=== PATIENT | male | born 1935 | race Caucasian/White ===

== ENCOUNTER → 2017-09-20 | Outpatient (REF) | payer MEDICARE, MEDICAID ==
[2017-09-20 14:27] LABS: APPEARANCE, URINE CLEAR (CLEAR); BACTERIA, URINE AUTO NEGATIVE (NEGATIVE); BILIRUBIN, URINE AUTO NEGATIVE (NEGATIVE); BLOOD, URINE BLOOD NEGATIVE (NEGATIVE); COLOR, URINE YELLOW (YELLOW); GLUCOSE, URINE (UA) AUTO NEGATIVE (NEGATIVE); KETONE, URINE AUTO NEGATIVE (NEGATIVE); LEUKOCYTE ESTERASE, URINE AUTO NEGATIVE (NEGATIVE); MUCUS, URINE SMALL (NEGATIVE); NITRITE, URINE AUTO NEGATIVE (NEGATIVE); PROTEIN, URINE AUTO NEGATIVE (NEGATIVE); RBC, URINE AUTO 1 /HPF (0-3); SPECIFIC GRAVITY URINE AUTO 1.014 (1.002-1.035); SQUAMOUS EPITHELIAL CELL UR AU 0 /HPF (0-6); UROBILINOGEN, URINE AUTO 0.2 mg/dL (0.0-2.0); WBC, URINE AUTO 0 /HPF (0-3)
== END ==
LOC: M SMT 13:55
DX: R97.20 Elevated prostate specific antigen [PSA] (principal); N40.1 Benign prostatic hyperplasia with lower urinary tract symptoms
CPT/HCPCS: 81001

== ENCOUNTER 2018-12-12 11:48 | Emergency (ER) | payer MEDICARE, MEDICAID ==
[~2018-12-12] VITALS: Ht 172.7 cm; Wt 68.2 kg
[2018-12-12] MEDS ORDERED: OMEP-221 (12:32)
[2018-12-12] MEDS ORDERED: AMLO2.5T3 (12:32)
[2018-12-12] MEDS ORDERED: NITR0.4S14 (12:32)
[2018-12-12 14:06] LABS: BASO % 0.3 % (0.0-1.0); EOS % 0.3 % (0.0-3.0); HEMOGLOBIN 14.2 g/dl (13.5-17.5); LYMPH # 1.1 10^3/uL (1.5-4.5); LYMPH % 14.6 % (24.0-44.0); MEAN CORPUSCULAR HEMOGLOBIN 30.9 pg (27.0-33.0); MEAN CORPUSCULAR HGB CONC 33.8 g/dl (32.0-36.5); MEAN CORPUSCULAR VOLUME 91.5 fl (80.0-96.0); MONO # 0.8 10^3/uL (0.0-0.8); MONO % 10.6 % (0.0-5.0); NEUTROPHILS # 5.7 10^3/uL (1.8-7.7); NEUTROPHILS % 73.9 % (36.0-66.0); PLATELET COUNT, AUTOMATED 302 10^3/uL (150-450); RED BLOOD COUNT 4.59 10^6/uL (4.30-6.10); WHITE BLOOD COUNT 7.7 10^3/uL (4.0-10.0)
[2018-12-12] MEDS ORDERED: ISOVUE-370 76% 100ML VIAL (Q9967) As Ordered ONE (14:15)
[2018-12-12 14:38] LABS: ALBUMIN 4.3 GM/DL (3.2-5.2); BILIRUBIN,DIRECT 0.1 MG/DL (0.0-0.2); BILIRUBIN,TOTAL 0.5 MG/DL (0.2-1.0); TOTAL PROTEIN 7.1 GM/DL (6.4-8.2)
[2018-12-12] MEDS ORDERED: PREPOIN PR (15:28)
[2018-12-12] MEDS ORDERED: MIRA3350 PO (15:28)
[2018-12-12 15:43] VITALS: BP 143/69
--- NOTE | 2018-12-12 17:22 | REP ---
REASON: Left lower quadrant pain. COMPARISON: None. CONTRAST: 100 mL Isovue-370. Dependant subsegmental atelectatic changes and mild fibrotic changes are seen in the lung bases. There is evidence of four chamber cardiac enlargement. The liver, gallbladder, spleen, pancreas, adrenal glands, and kidneys are within normal limits. The abdominal aorta and paraaortic regions are within normal limits. The bowel loops and their mesenteries are within normal limits. There is no free fluid or free air. There is no intraabdominal mass or adenopathy. CT PELVIS: There is prostatomegaly. There is no pelvic sidewall adenopathy. There has been previous left herniorrhaphy. Near the postoperative bed there is a 2.3 x 1.2 cm sized soft tissue density. The pelvic bowel loops and their mesenteries are within normal limits. There is a small urinary bladder diverticulum anterior and on the left. There is no free pelvic fluid or air. Bone window technique throughout the exam shows the osseous structures to be within normal limits for the patient's age of 83 years. IMPRESSION: 1. There is a small nodule or soft-tissue density seen in the left groin region, probably representing a post-surgical scar. 2. Prostatomegaly. 3. No evidence of acute intraabdominal or intrapelvic disease. 4. Chronic lung base changes. Electronically Signed by Jonathan Wilde DO 12/13/2018 11:56 A
== END 2018-12-12 15:48 | disposition home or self-care (01) ==
LOC: M ED 11:48
DX: K64.4 Residual hemorrhoidal skin tags (principal); N40.0 Benign prostatic hyperplasia without lower urinary tract symptoms; Z87.891 Personal history of nicotine dependence; R93.5 Abnormal findings on diagnostic imaging of other abdominal regions, including retroperitoneum; R91.8 Other nonspecific abnormal finding of lung field; I51.7 Cardiomegaly; Z79.899 Other long term (current) drug therapy; Z88.0 Allergy status to penicillin
CPT/HCPCS: 74177; 80047; 80076; 81001; 85025; 99284; Q9967

== ENCOUNTER → 2019-02-09 | Outpatient (REF) | payer MEDICARE, MEDICAID ==
[~2019-02-09] MED LIST: AMLO2.5T3; MIRA3350 PO; NITR0.4S14; OMEP-221; PREPOIN PR
[2019-02-09 15:27] LABS: PLATELET COUNT, AUTOMATED 274 10^3/uL (150-450)
[2019-02-09 15:39] LABS: INR 1.09; PROTHROMBIN TIME 13.9 SECONDS (11.8-14.0)
[2019-02-09 15:40] LABS: PARTIAL THROMBOPLASTIN TIME 33.2 SECONDS (25.0-38.4)
== END ==
LOC: M LABDRAW1 11:50
PROVIDERS: ATTEND Physician Assistant
DX: Z01.812 Encounter for preprocedural laboratory examination (principal); M47.27 Other spondylosis with radiculopathy, lumbosacral region

== ENCOUNTER 2019-05-19 07:45 | Day surgery (SDC) | payer MEDICARE, MEDICAID ==
[~2019-05-19] VITALS: Ht 172.7 cm; Wt 67.0 kg
[~2019-05-19 07:45] MED LIST changes: +CARV6.25 PO; +LEVO500T3 PO; -NITR0.4S14; +NITR0.4S14 SL; +NS 1,000 ML IV ONE; -OMEP-221; +OMEP-221 PO; +OXYB5TAB10 PO; +PRED10PA PO
[2019-05-19 09:29] VITALS: BP 164/89
[2019-05-19] MEDS ORDERED: CARVedilol 6.25 MG TAB PO STA (09:29)
[2019-05-19] MEDS ORDERED: CARVedilol 6.25 MG TAB As Ordered ONE (09:29)
[2019-05-19] MEDS ORDERED: LIDOCAINE 2% INJ 100 MG/5 ML SDV (FOR ANES.) As Ordered ONE (09:39)
[2019-05-19] MEDS ORDERED: propofoL 200 MG/20 ML VIAL As Ordered ONE ×2 (09:39→09:54)
[2019-05-19] MEDS ORDERED: ESMOLOL INJ 100MG/10ML VIAL As Ordered ONE (09:39)
--- NOTE | 2019-05-19 10:05 | ROOR ---
Patient Name: Rafal Mccoy Procedure Date: 05/19/2019 9:36 AM Date of : 1935 Age: 84 Room: [facility] Gender: Male Note Status: Finalized Procedure: Colonoscopy Indications: Hematochezia Providers: Shukri VERAS MD Referring MD: SHANKAR BARKLEY MD Requesting Provider: Medicines: Monitored Anesthesia Care Complications: No immediate complications. Procedure: Pre-Anesthesia Assessment: - The heart rate, respiratory rate, oxygen saturations, blood pressure, adequacy of pulmonary ventilation, and response to care were monitored throughout the procedure. The Colonoscope was introduced through the anus and advanced to the cecum, identified by appendiceal orifice and ileocecal valve. The colonoscopy was performed without difficulty. The patient tolerated the procedure well. The quality of the bowel preparation was good. Findings: The perianal and digital rectal examinations were normal. Two sessile polyps were found in the ascending colon. The polyps were 4 to 5 mm in size. These polyps were removed with a cold snare. Resection and retrieval were complete. To prevent bleeding after the polypectomy, two hemostatic clips were successfully placed. Internal hemorrhoids were found during retroflexion. The hemorrhoids were medium-sized. The exam was otherwise without abnormality on direct and retroflexion views. Impression: - Two 4 to 5 mm polyps in the ascending colon, removed with a cold snare. Resected and retrieved. Clips were placed. - Moderate to large Internal hemorrhoids. - Mild to moderate sigmoid diverticulosis. - The examination was otherwise normal on direct and retroflexion views. Recommendation: - Telephone endoscopist for pathology results in 2 weeks. - Use fiber, for example Citrucel, Fibercon, Konsyl or Metamucil. - Miralax 1 capful (17 grams) in 8 ounces of water PO daily. Shukri Veras MD Shukri VERAS MD 05/19/2019 10:04:38 AM Electronically signed by Shukri VERAS MD Number of Addenda: 0 Note Initiated On: 05/19/2019 9:36 AM Estimated Blood Loss: Estimated blood loss: none.
[2019-05-19 10:30] VITALS: BP 138/77
== END 2019-05-19 10:37 | disposition home or self-care (01) ==
LOC: M OPP 07:45
PROVIDERS: ATTEND Internal Medicine Gastroenterology
DX: D12.2 Benign neoplasm of ascending colon (principal); K62.5 Hemorrhage of anus and rectum; K92.1 Melena; K64.8 Other hemorrhoids; I10 Essential (primary) hypertension; K21.9 Gastro-esophageal reflux disease without esophagitis; J44.9 Chronic obstructive pulmonary disease, unspecified; N40.0 Benign prostatic hyperplasia without lower urinary tract symptoms; Z79.899 Other long term (current) drug therapy

== ENCOUNTER → 2019-10-31 | Outpatient (REF) ==
[~2019-10-31] MED LIST changes: +DOXY-342 PO; -NS 1,000 ML IV ONE; +PANT40TA3 PO; +PHEN28OI PR; -PREPOIN PR
[2019-10-31 11:57] LABS: VENOUS BASE EXCESS -1.1 (-2.0-2.0); VENOUS HCO3 24.4 MEQ/L (23.0-27.0); VENOUS O2 SATURATION 73.2 % (60.0-80.0); VENOUS PARTIAL PRESSURE CO2 43.7 mmHg (38.0-50.0); VENOUS PARTIAL PRESSURE O2 41.8 mmHg (30.0-50.0); VENOUS PH 7.365 UNITS (7.330-7.430); VENOUS STANDARD HCO3 23.1 MEQ/L; VENOUS TOTAL CO2 25.8 MEQ/L (24.0-28.0)
== END ==
LOC: M LAB REF 11:43
DX: Z00.00 Encounter for general adult medical examination without abnormal findings (principal)

== ENCOUNTER 2019-11-12 14:37 | Emergency (ER) | payer MEDICARE, MEDICAID ==
[~2019-11-12] VITALS: Ht 172.7 cm; Wt 68.1 kg
[~2019-11-12 14:37] MED LIST changes: -DOXY-342 PO; -PANT40TA3 PO
[2019-11-12] MEDS ORDERED: DOXY-342 PO (14:52)
[2019-11-12] MEDS ORDERED: PANT40TA29 PO (14:52)
[2019-11-12 15:24] LABS: BASO % 0.4 % (0.0-1.0); EOS # 0.1 10^3/uL (0.0-0.5); EOS % 1.5 % (0.0-3.0); HEMATOCRIT 36.4 % (42.0-52.0); HEMOGLOBIN 12.6 g/dl (13.5-17.5); LYMPH # 1.4 10^3/uL (1.5-5.0); LYMPH % 19.4 % (24.0-44.0); MEAN CORPUSCULAR HEMOGLOBIN 32.4 pg (27.0-33.0); MEAN CORPUSCULAR HGB CONC 34.6 g/dl (32.0-36.5); MEAN CORPUSCULAR VOLUME 93.6 fl (80.0-96.0); MONO # 0.8 10^3/uL (0.0-0.8); MONO % 10.6 % (0.0-5.0); NEUTROPHILS # 4.8 10^3/uL (1.5-8.5); NEUTROPHILS % 67.7 % (36.0-66.0); PLATELET COUNT, AUTOMATED 260 10^3/uL (150-450); RED BLOOD COUNT 3.89 10^6/uL (4.30-6.10); WHITE BLOOD COUNT 7.2 10^3/uL (4.0-10.0)
[2019-11-12] MEDS ORDERED: ISOVUE-370 76% 100ML VIAL As Ordered ONE (15:34)
[2019-11-12 15:35] LABS: INR 1.04; PROTHROMBIN TIME 13.3 SECONDS (11.8-14.0)
[2019-11-12] MEDS ORDERED: IPRATROPIUM 0.5MG/ALBUTEROL 2.5MG INH SOL UD 3ML (DUONEB) NEB ONE (15:45)
[2019-11-12] MEDS ORDERED: ALBUTEROL SULFATE 2.5 MG/0.5 ML INH NEB SOLN INH ONE (15:45)
[2019-11-12] MEDS ORDERED: methylPREDNISolone 40MG 1ML VIAL IV ONE (15:45)
[2019-11-12 15:49] LABS: ALBUMIN 3.5 GM/DL (3.2-5.2); ALT/SGPT 20 U/L (12-78); BILIRUBIN,DIRECT < 0.1 MG/DL (0.0-0.2); BILIRUBIN,TOTAL 0.4 MG/DL (0.2-1.0); CK-MB VALUE MASS 1.2 NG/ML (<3.6); CPK CREATINE PHOSPHOKINASE 37 U/L (39-308); LIPASE 151 U/L (73-393); MB/CK RELATIVE INDEX 3.24 (< OR =4); TOTAL PROTEIN 6.2 GM/DL (6.4-8.2); TROPONIN I < 0.02 NG/ML (< 0.10)
[2019-11-12 16:45] VITALS: BP 149/75
--- NOTE | 2019-11-12 19:20 | ECGEPIP ---
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
--- NOTE | 2019-11-13 01:31 | REP ---
AP PORTABLE CHEST: 11/12/2019. CLINICAL HISTORY: Chest pain. COMPARISON: 11/07/2008. FINDINGS: Lungs less well inflated than on the previous study. Patient's mandible projects over the extreme apices, obscuring them. That said, no gross pneumothorax. There is no pleural effusion or visible infiltrate. Heart size mildly prominent, but this may be exaggerated by portable technique and hypoinflation. The aorta is tortuous, calcified, and unchanged allowing for technique. Airway intact. Pulmonary arteries are prominent, suggesting pulmonary artery hypertension. No pulmonary edema. No dense consolidation. Degenerative changes in the spine and shoulders. IMPRESSION: 1. Somewhat hypoinflated chest, but suspected mild cardiomegaly without edema, effusion, or infiltrate. Limited examination. Posterior lower lung zones are obscured by the diaphragm. Electronically Signed by French Harkins MD 11/13/2019 08:45 A
--- NOTE | 2019-11-13 02:52 | REP ---
CT BRAIN WITHOUT CONTRAST: 11/12/2019. CLINICAL HISTORY: Difficulty ambulating. TECHNIQUE: Axial soft tissue and bone windows with coronal reconstructions. FINDINGS: No prior study. Lateral ventricles are without dilatation or displacement. Anterior horns are slightly asymmetric due to positioning but are in the broad range of normal. Basal ganglia show some calcifications as a benign finding and are normal for age without acute finding. There is diffuse cerebral atrophy, greatest in the temporal and frontal lobes. Heterogeneous low attenuation white matter changes bilaterally suggest chronic small vessel ischemic disease of aging. Cortical stripe shows diffuse atrophy, but there is no vascular territory infarct, intra- or extra-axial hemorrhage, mass, or mass effect. Brainstem unremarkable. Cerebellum shows some mild atrophy. Basal cisterns are intact. Mastoid aeration, visible sinuses, skull base, and calvarium were grossly intact. Minor atherosclerotic calcifications in the carotid siphons. IMPRESSION: 1. Some chronic small vessel white matter ischemic changes of aging and mild to moderate cerebral and mild cerebellar atrophy, all age appropriate. 2. Symmetric basal ganglia calcifications, a common benign finding in this age group. 3. No acute infarct, intra- or extra-axial hemorrhage, mass, mass effect, or edema. 4. Skull base, calvarium, visible sinuses, and mastoids clear. Electronically Signed by French Harkins MD 11/13/2019 08:47 A
--- NOTE | 2019-11-13 03:20 | REP ---
CT ANGIOGRAM CHEST: 11/12/2019. CLINICAL HISTORY: Chest pain. TECHNIQUE: Bolus of 75 mL Isovue-370. Scanning through the chest with our pulmonary angiogram technique and with both coronal and sagittal reconstructions in MIP and standard reformats. COMPARISON: AP portable chest today. FINDINGS: There is some minimal subsegmental atelectatic change and dependent atelectasis in the posterior lower lung zones. I see no dense consolidation. There are a few areas of ground-glass opacity in those lower lung zones, as well. The middle and upper lobes were unremarkable. There is no effusion or dense consolidation with air bronchograms. Heart is mildly enlarged with left atrial and ventricular enlargement. No pericardial thickening or effusion. Small hiatal hernia noted. The aorta is without aneurysm or dissection. The main, right, and left pulmonary arteries and the mediastinum are without filling defect or vessel cutoff. Lobar, segmental, and subsegmental pulmonary arteries are all without filling defects or vessel cutoff to suggest pulmonary embolism. I see no pathologic sized mediastinal or hilar adenopathy. There is no axillary or supraclavicular mass. The bone windows show the sternum, manubrium, medial clavicles, visualized portions of the scapulae and humeral heads without fracture or destructive lesion. There are degenerative changes at the shoulders. Visualized ribs are without fracture or focal lesion. Upper abdomen shows no hepatosplenomegaly, although the liver is not fully imaged. The gallbladder and pancreas are also seen in part, and those portions visible were unremarkable. Adrenal glands are normal. Upper poles of kidneys intact. IMPRESSION: 1. There is no CT evidence of pulmonary thromboembolism, aortic aneurysm or dissection, and no mediastinal or hilar adenopathy. 2. Cardiomegaly without pulmonary edema. There is some minor dependent atelectatic change and linear atelectasis deep sulci lower lobes without effusion or dense consolidation. A few ground-glass opacities also seen in the deep sulci and posterior lower lung zones. 3. Degenerative changes in the spine without acute bony finding. 4. Upper abdomen structures unremarkable. There is a small hiatal hernia. Electronically Signed by French Harkins MD 11/13/2019 08:48 A
== END 2019-11-12 17:18 | disposition home or self-care (01) ==
LOC: M ED 14:37
DX: J98.11 Atelectasis (principal); R07.9 Chest pain, unspecified; I67.82 Cerebral ischemia; R06.02 Shortness of breath; R42 Dizziness and giddiness; I11.9 Hypertensive heart disease without heart failure; I25.2 Old myocardial infarction; I25.10 Atherosclerotic heart disease of native coronary artery without angina pectoris; K21.9 Gastro-esophageal reflux disease without esophagitis; J44.9 Chronic obstructive pulmonary disease, unspecified; B40.0 Acute pulmonary blastomycosis; M54.9 Dorsalgia, unspecified; Z87.19 Personal history of other diseases of the digestive system; Z95.5 Presence of coronary angioplasty implant and graft; Z87.891 Personal history of nicotine dependence; Z88.0 Allergy status to penicillin; Z79.899 Other long term (current) drug therapy; Z79.2 Long term (current) use of antibiotics
CPT/HCPCS: 70450; 71045; 71275; 80047; 80076; 81001; 82550; 82553; 83690; 84484; 85025; 85610; 93005; 93041; 94640; 94760; 96374; 99285; J2920; Q9967

== ENCOUNTER 2022-12-18 03:04 | Observation (INO) | payer MEDICARE, MEDICAID ==
[~2022-12-18] VITALS: Ht 172.7 cm; Wt 65.9 kg
[~2022-12-18 03:04] MED LIST changes: +DOXY100C82 PO; +LEVO1TAB39 PO; -LEVO500T3 PO; -OMEP-221 PO; +OMEP40CA5 PO; +PANT40TA29 PO
[2022-12-18 03:47] LABS: BASO % 0.7 % (0.0-1.0); EOS # 0.2 10^3/uL (0.0-0.5); EOS % 3.2 % (0.0-3.0); HEMATOCRIT 34.6 % (42.0-52.0); HEMOGLOBIN 11.8 g/dl (13.5-17.5); LYMPH # 1.2 10^3/uL (1.5-5.0); LYMPH % 20.6 % (24.0-44.0); MEAN CORPUSCULAR HGB CONC 34.1 g/dl (32.0-36.5); MEAN CORPUSCULAR VOLUME 96.6 fl (80.0-96.0); MONO # 0.7 10^3/uL (0.0-0.8); MONO % 11.1 % (2.0-8.0); NEUTROPHILS # 3.8 10^3/uL (1.5-8.5); NEUTROPHILS % 63.7 % (36.0-66.0); PLATELET COUNT, AUTOMATED 239 10^3/uL (150-450); RED BLOOD COUNT 3.58 10^6/uL (4.30-6.10); WHITE BLOOD COUNT 5.9 10^3/uL (4.0-10.0)
[2022-12-18 04:13] LABS: BLOOD UREA NITROGEN 12 MG/DL (9-23); CALCIUM LEVEL 8.6 MG/DL (8.3-10.6); CARBON DIOXIDE LEVEL 28 MMOL/L (20-31); CHLORIDE LEVEL 104 MMOL/L (98-107); CK-MB VALUE MASS < 1.0 NG/ML (<3.6); CPK CREATINE PHOSPHOKINASE 33 U/L (46-171); CREATININE FOR GFR 0.87 MG/DL (0.70-1.30); GLOMERULAR FILTRATION RATE > 60.0 (>35); GLUCOSE, FASTING 104 MG/DL (74-106); MB/CK RELATIVE INDEX 3.03 (< OR =4); POTASSIUM SERUM 3.9 MMOL/L (3.5-5.1); SODIUM LEVEL 140 MMOL/L (136-145)
[2022-12-18 05:01] LABS: CK-MB VALUE MASS 1.3 NG/ML (<3.6)
[2022-12-18 05:03] LABS: MB/CK RELATIVE INDEX 4.48 (< OR =4)
[2022-12-18] MEDS ORDERED: ISOVUE-370 76% 100ML VIAL As Ordered ONE (07:31)
[2022-12-18 08:56] VITALS: O2SAT 97
[2022-12-18] MEDS ORDERED: MED REC IN PROGRESS XX SCH (09:40)
[2022-12-18] MEDS ORDERED: NITR0.4S14 SL (10:56)
[2022-12-18] MEDS ORDERED: RANO500T2 PO (11:13)
[2022-12-18] MEDS ORDERED: NITR0.2D5 TOP (11:21)
[2022-12-18] MEDS ORDERED: ASPIRIN 325 MG TAB PO ONE (11:30)
[2022-12-18] MEDS ORDERED: HOME MED LIST COMPLETE! XX SCH (11:50)
[2022-12-18 12:25] LABS: RSV AMPLIFICATION NEGATIVE (NEGATIVE)
[2022-12-18] MEDS ORDERED: NITROGLYCERIN 0.3MG SUBL TAB SL PRN (12:35)
[2022-12-18] MEDS ORDERED: MAALOX 30 ML SUSP *UDC PO ONE (13:00)
[2022-12-18 14:08] LABS: CHOLESTEROL RISK RATIO 3.92 (<5); HDL CHOLESTEROL 56.8 MG/DL (>40); NON-HDL-C 166.2 MG/DL
[2022-12-18 14:21] LABS: HEMOGLOBIN A1c 5.3 % (4.0-6.0)
[2022-12-18] MEDS ORDERED: VALSARTAN 40MG TABLET (DIOVAN) PO ONE (14:40)
[2022-12-18 16:08] VITALS: BP 133/65
[2022-12-18 17:00] VITALS: BP 150/71; TEMP 96.5; O2SAT 92
[2022-12-18] MEDS: FONDAPARINUX SODIUM 2.5 MG/0.5 ML SYRINGE SC SCH (18:19)
[2022-12-18 20:30] VITALS: BP 140/67; TEMP 98; O2SAT 90
[2022-12-18] MEDS ORDERED: ROSUVASTATIN 10 MG TAB (CRESTOR) PO SCH (21:00)
[2022-12-19] VITALS: BP 160/70; TEMP 97.3; O2SAT 95
[2022-12-19 04:10] VITALS: BP 160/70; TEMP 97.9; O2SAT 93
[2022-12-19 07:33] VITALS: BP 124/59; TEMP 97.6; O2SAT 96
[2022-12-19] MEDS ORDERED: SUCRALFATE 1 GM TAB PO SCH (08:00)
[2022-12-19] MEDS ORDERED: ASPI81CH8 PO (08:39)
[2022-12-19] MEDS ORDERED: OMEP-173 PO (08:39)
[2022-12-19] MEDS ORDERED: DIOV40TA PO (08:39)
[2022-12-19] MEDS ORDERED: SUCR1TA PO (08:39)
[2022-12-19] MEDS ORDERED: SELF1KIT MC (08:39)
[2022-12-19] MEDS ORDERED: CRES10TA PO (08:39)
[2022-12-19 08:41] LABS: BASO # 0.1 10^3/uL (0.0-0.2); BASO % 0.8 % (0.0-1.0); EOS # 0.2 10^3/uL (0.0-0.5); EOS % 2.8 % (0.0-3.0); HEMATOCRIT 41.4 % (42.0-52.0); LYMPH # 2.1 10^3/uL (1.5-5.0); LYMPH % 28.5 % (24.0-44.0); MEAN CORPUSCULAR HEMOGLOBIN 32.9 pg (27.0-33.0); MEAN CORPUSCULAR HGB CONC 34.1 g/dl (32.0-36.5); MEAN CORPUSCULAR VOLUME 96.7 fl (80.0-96.0); MONO # 0.7 10^3/uL (0.0-0.8); MONO % 9.7 % (2.0-8.0); NEUTROPHILS # 4.3 10^3/uL (1.5-8.5); NEUTROPHILS % 57.8 % (36.0-66.0); PLATELET COUNT, AUTOMATED 282 10^3/uL (150-450); RED BLOOD COUNT 4.28 10^6/uL (4.30-6.10); WHITE BLOOD COUNT 7.4 10^3/uL (4.0-10.0)
[2022-12-19 08:54] LABS: HEMOGLOBIN 14.1 g/dl (13.5-17.5)
[2022-12-19] MEDS ORDERED: OMEPRAZOLE 20MG CAP PO SCH (09:00)
[2022-12-19] MEDS ORDERED: VALSARTAN 40MG TABLET (DIOVAN) PO SCH (09:00)
[2022-12-19] MEDS ORDERED: ASPIRIN 81MG CHEW TABLET PO SCH (09:00)
[2022-12-19 09:06] LABS: CK-MB VALUE MASS 1.9 NG/ML (<3.6)
[2022-12-19 09:08] LABS: ALBUMIN 3.9 G/DL (3.2-5.2); ALKALINE PHOSPHATASE 54 U/L (46-116); ALT/SGPT 12 U/L (7.0-40); AST/SGOT 16 U/L (<34); BILIRUBIN,TOTAL 0.7 MG/DL (0.3-1.2); BLOOD UREA NITROGEN 14 MG/DL (9-23); CALCIUM LEVEL 9.2 MG/DL (8.3-10.6); CARBON DIOXIDE LEVEL 26 MMOL/L (20-31); CHLORIDE LEVEL 107 MMOL/L (98-107); CREATININE FOR GFR 0.72 MG/DL (0.70-1.30); GLOMERULAR FILTRATION RATE > 60.0 (>35); GLUCOSE, FASTING 95 MG/DL (74-106); POTASSIUM SERUM 4.5 MMOL/L (3.5-5.1); SODIUM LEVEL 141 MMOL/L (136-145); TOTAL PROTEIN 6.6 G/DL (5.7-8.2)
[2022-12-19 09:09] LABS: CPK CREATINE PHOSPHOKINASE 43 U/L (46-171); MB/CK RELATIVE INDEX 4.41 (< OR =4)
[2022-12-19 09:30] VITALS: BP 132/64
[2022-12-19] MEDS: FONDAPARINUX SODIUM 2.5 MG/0.5 ML SYRINGE SC SCH (09:33)
== END 2022-12-19 11:06 | disposition home health service (06) ==
LOC: M ED 03:04 → M ED INP 03:05 → ENRESERV 15:20 → M PCU 16:48
PROVIDERS: ADMIT Internal Medicine; ATTEND Internal Medicine
DX: R07.89 Other chest pain (principal); R00.1 Bradycardia, unspecified; I25.10 Atherosclerotic heart disease of native coronary artery without angina pectoris; I25.2 Old myocardial infarction; Z95.5 Presence of coronary angioplasty implant and graft; Z88.0 Allergy status to penicillin; Z79.899 Other long term (current) drug therapy
CPT/HCPCS: 36415; 71045; 71046; 71275; 80048; 80053; 80061; 82550; 82553; 83036; 83880; 84484; 85025; 87631; 93005; 93041; 93306; 94760; 96372; 99285; G0378; J1652; Q9967

== ENCOUNTER 2023-04-06 13:58 | Emergency (ER) | payer MEDICARE, MEDICAID ==
[~2023-04-06] VITALS: Ht 172.7 cm; Wt 70.9 kg
[~2023-04-06 13:58] MED LIST changes: +ASPI81CH8 PO; +CRES10TA PO; +DIOV40TA PO; +NITR0.2D5 TOP; +OMEP-173 PO; -OXYB5TAB10 PO; +OXYB5TAB11 PO; +RANO500T2 PO; +SELF1KIT MC; +SUCR1TA PO
[2023-04-06] MEDS ORDERED: CARV6.25 PO (14:14)
[2023-04-06] MEDS ORDERED: RANO500T2 PO (14:15)
[2023-04-06] MEDS ORDERED: OXYB5TAB11 PO (14:15)
[2023-04-06 15:57] LABS: BASO % 0.4 % (0.0-1.0); EOS % 0.1 % (0.0-3.0); LYMPH # 0.6 10^3/uL (1.5-5.0); LYMPH % 6.7 % (24.0-44.0); MEAN CORPUSCULAR HEMOGLOBIN 32.4 pg (27.0-33.0); MEAN CORPUSCULAR HGB CONC 34.2 g/dl (32.0-36.5); MEAN CORPUSCULAR VOLUME 94.8 fl (80.0-96.0); MONO # 0.8 10^3/uL (0.0-0.8); MONO % 9.3 % (2.0-8.0); NEUTROPHILS # 6.9 10^3/uL (1.5-8.5); PLATELET COUNT, AUTOMATED 298 10^3/uL (150-450); RED BLOOD COUNT 4.01 10^6/uL (4.30-6.10); WHITE BLOOD COUNT 8.3 10^3/uL (4.0-10.0)
[2023-04-06 16:19] LABS: LIPASE 34 U/L (12-53)
[2023-04-06 16:21] LABS: ALKALINE PHOSPHATASE 58 U/L (46-116); ALT/SGPT 21 U/L (7.0-40); AST/SGOT 19 U/L (<34); BILIRUBIN,DIRECT 0.2 MG/DL (<0.4); BILIRUBIN,TOTAL 0.5 MG/DL (0.3-1.2); BLOOD UREA NITROGEN 13 MG/DL (9-23); CALCIUM LEVEL 8.8 MG/DL (8.3-10.6); CARBON DIOXIDE LEVEL 28 MMOL/L (20-31); CHLORIDE LEVEL 98 MMOL/L (98-107); CREATININE FOR GFR 0.73 MG/DL (0.70-1.30); GLOMERULAR FILTRATION RATE > 60.0 (>35); GLUCOSE, FASTING 97 MG/DL (74-106); SODIUM LEVEL 131 MMOL/L (136-145); TOTAL PROTEIN 6.6 G/DL (5.7-8.2)
[2023-04-06] MEDS ORDERED: MAALOX 30 ML SUSP *UDC PO ONE (17:10)
[2023-04-06] MEDS ORDERED: ISOVUE-370 76% 100ML VIAL As Ordered ONE (17:23)
[2023-04-06 19:28] VITALS: O2SAT 97
[2023-04-06 19:32] VITALS: BP 175/95
[2023-04-06 19:35] VITALS: TEMP 98.3
== END 2023-04-06 19:35 | disposition home or self-care (01) ==
LOC: M ED 13:58
DX: R05.9 Cough, unspecified (principal); J98.19 Other pulmonary collapse; I25.10 Atherosclerotic heart disease of native coronary artery without angina pectoris; I25.2 Old myocardial infarction; K21.9 Gastro-esophageal reflux disease without esophagitis; Z95.5 Presence of coronary angioplasty implant and graft; Z87.11 Personal history of peptic ulcer disease; Z79.899 Other long term (current) drug therapy; Z88.0 Allergy status to penicillin
CPT/HCPCS: 71275; 74177; 80048; 80076; 83690; 84484; 85025; 87486; 87581; 87633; 87798; 93005; 93041; 94760; 99284; Q9967